=== PATIENT | female | born 1980 | race Caucasian/White ===

== ENCOUNTER 2022-11-13 12:40 | Inpatient (IN) | payer BC ==
[2022-11-13] MEDS ORDERED: Sodium Chloride 0.9% 10 ML Syringe FLUSH PRN (14:26)
[2022-11-13] MEDS ORDERED: Sodium Chloride 0.9% 1,000 ML IV STA (14:26)
[2022-11-13] MEDS ORDERED: Ondansetron 4 MG/2 ML SDV IVPUSH ONE (14:28)
[2022-11-13] MEDS ORDERED: HYDROmorphone 1 MG/ML Syringe IVPUSH ONE (14:28)
[2022-11-13] MEDS ORDERED: HYDROmorphone 0.5 MG/0.5 ML Syringe IVPUSH ONE ×3 (16:28→20:45)
[2022-11-13] MEDS ORDERED: Sodium Chloride 0.9% 10 ML Syringe FLUSH ONE (16:39)
[2022-11-13] MEDS ORDERED: Iopamidol 612 MG/ML 100 ML Bottle IVPUSH ONE (16:39)
[2022-11-13] MEDS ORDERED: cefTRIAXone 2 GM in Sodium Chloride 0.9% 100 ML IV ONE (17:59)
[2022-11-13] MEDS ORDERED: Metoclopramide 10 MG/2 ML SDV IVPUSH ONE (18:26)
[2022-11-13] MEDS ORDERED: Ondansetron 4 MG/2 ML SDV IVPUSH PRN (22:27)
[2022-11-13] MEDS: Sodium Chloride 0.9% 1,000 ML IV SCH (22:54)
[2022-11-13] MEDS: HYDROmorphone 0.5 MG/0.5 ML Syringe IVPUSH PRN (22:55)
[2022-11-14] MEDS: HYDROmorphone 0.5 MG/0.5 ML Syringe IVPUSH PRN ×3 (02:14→08:43)
[2022-11-14] MEDS: Potassium Chloride 10 MEQ in Premix Bag 1 BAG IV SCH ×4 (08:10→12:05)
[2022-11-14] MEDS: Sodium Chloride 0.9% 1,000 ML IV SCH (08:14)
[2022-11-14] MEDS ORDERED: Propofol 200 MG/20 ML SDV ONE (08:56)
[2022-11-14] MEDS ORDERED: fentaNYL 100 MCG/2 ML SDV ONE ×3 (08:56→12:24)
[2022-11-14] MEDS ORDERED: Rocuronium 50 MG/5 ML Vial ONE (08:56)
[2022-11-14] MEDS ORDERED: Lidocaine 1% 5 ML VIAL ONE (08:56)
[2022-11-14] MEDS ORDERED: Midazolam 1 MG/ML 2 ML SDV ONE (08:56)
[2022-11-14] MEDS ORDERED: Dexamethasone 4 MG/ML 5 ML MDV ONE (08:56)
[2022-11-14] MEDS ORDERED: Ondansetron 4 MG/2 ML SDV ONE (08:56)
[2022-11-14] MEDS ORDERED: diphenhydrAMINE 50 MG/ML SDV ONE (08:56)
[2022-11-14] MEDS ORDERED: Bupivacaine 0.5%/EPINEPHrine 1:200,000 50 ML MDV ONE (09:03)
[2022-11-14] MEDS ORDERED: Lidocaine 1% with EPINEPHrine 1:100,000 20 ML MDV ONE (09:03)
[2022-11-14] MEDS: Pantoprazole 40 MG Tab.CR PO SCH (09:37)
[2022-11-14] MEDS ORDERED: ceFAZolin 2 GM Vial ONE (09:56)
[2022-11-14] MEDS ORDERED: Phenylephrine HCl In 0.9% NaCl 1 MG/10 ML Vial ONE (10:00)
[2022-11-14] MEDS ORDERED: HYDROmorphone 0.5 MG/0.5 ML Syringe ONE ×2 (10:26→11:34)
[2022-11-14] MEDS ORDERED: Lactated Ringers 1,000 ML ONE ×2 (10:36)
[2022-11-14] MEDS ORDERED: Neostigmine Methylsulfate 10 MG/10 ML MDV ONE (10:50)
[2022-11-14] MEDS ORDERED: HYDROmorphone 0.5 MG/0.5 ML Syringe IVPUSH PRN ×2 (12:06→12:23)
[2022-11-14] MEDS ORDERED: Ondansetron 4 MG/2 ML SDV IVPUSH PRN (12:23)
[2022-11-14] MEDS: fentaNYL 100 MCG/2 ML SDV IVPUSH PRN ×2 (12:25→12:30)
[2022-11-14] MEDS ORDERED: Piperacillin/Tazobactam 4.5 GM in Sodium Chloride 0.9% 100 ML IV ONE (14:00)
[2022-11-14] MEDS: Heparin Sodium 5,000 Units/ML Vial SUBCUT SCH ×2 (15:27→21:45)
[2022-11-14] MEDS: NS + KCl 20mEq/L 1,000 ML IV SCH (15:42)
[2022-11-14] MEDS: Acetaminophen/HYDROcodone 325-10 MG Tab PO PRN ×2 (15:59→21:45)
[2022-11-14] MEDS ORDERED: cefTRIAXone 2 GM in Sodium Chloride 0.9% 100 ML IV SCH (18:00)
[2022-11-14] MEDS: Piperacillin/Tazobactam 4.5 GM in Sodium Chloride 0.9% 100 ML IV SCH (21:45)
[2022-11-15] MEDS: NS + KCl 20mEq/L 1,000 ML IV SCH (01:44)
[2022-11-15] MEDS: Acetaminophen/HYDROcodone 325-10 MG Tab PO PRN ×3 (01:52→11:58)
[2022-11-15] MEDS: Heparin Sodium 5,000 Units/ML Vial SUBCUT SCH (05:27)
[2022-11-15] MEDS: Piperacillin/Tazobactam 4.5 GM in Sodium Chloride 0.9% 100 ML IV SCH (05:27)
[2022-11-15 07:56] VITALS: BP 117/61; PULSE 64
[2022-11-15] MEDS ORDERED: NORETHINDRONE PO SCH (09:00)
[2022-11-15] MEDS ORDERED: ETHINYL ESTRADIOL PO SCH (09:00)
[2022-11-15] MEDS: Pantoprazole 40 MG Tab.CR PO SCH (09:49)
== END 2022-11-15 13:13 | disposition home or self-care (01) | DRG 710 ==
LOC: JD.ED 12:40 → JD.MS 20:01
PROVIDERS: ADMIT Surgery; ATTEND Surgery
PROC: 0FT44ZZ Resection of Gallbladder, Percutaneous Endoscopic Approach (ICD-10-PCS; principal; 2022-11-14)
DX: A41.9 Sepsis, unspecified organism (principal); K21.9 Gastro-esophageal reflux disease without esophagitis; K80.00 Calculus of gallbladder with acute cholecystitis without obstruction; Z98.890 Other specified postprocedural states; Z90.89 Acquired absence of other organs
CPT/HCPCS: 36415; 74177; 74177-26; 76705; 76705-26; 80053; 81001; 83605; 83690; 84703; 85025; 87040; 96361; 96365; 96375; 96376; 99285-25; A9270-GY; J0690; J0696; J1100; J1170; J1200; J1644; J2250; J2405; J2543; J2704; J2710; J2765; J3010; J3480; J3490; J7030; J7120; Q9967